=== PATIENT | female | born 1955 | race Caucasian/White ===

== ENCOUNTER 2016-08-29 08:52 | Outpatient (CLI) | payer OTHER ==
--- NOTE | 2016-08-29 10:27 | DIAGNOSTIC IMAGING REPORT ---
PROCEDURE: US KIDNEY/RENAL COMPLETE INDICATION: KIDNEY CYSTS TECHNIQUE: Transabdominal scans of the kidneys with calculation of resistive indices. Prevoid and postvoid bladder volumes were obtained. COMPARISON: None. FINDINGS: RIGHT: Measures 8.6 x 4.9 x 4.7 cm. Cortex measures 1.1 cm. No calculi or hydronephrosis. Resistive indices measure 0.78 or less. LEFT: Kidney measures 9.2 x 4.6 x 4.4 cm. Cortex measures 1.1 cm. There is a 9 mm simple mid pole cyst. No calculi or hydronephrosis. Resistive indices measure 0.76 or less. BLADDER: Bilateral ureteral jets visualized. Prevoid bladder volume 323 ml, postvoid volume 13 ml. IMPRESSION: 1. 9 mm simple mid left renal cyst 2. Borderline elevation of the resistive indices which may indicate intrinsic renal disease
--- NOTE | 2016-09-05 10:17 | DIAGNOSTIC IMAGING REPORT ---
PROCEDURE: MG BILATERAL SCREENING W/CAD INDICATION: SCREENING TECHNIQUE: Bilateral CC and MLO digital views. COMPARISON: Prior studies not available at this time and have been requested. FINDINGS: Computer-aided detection applied. Moderately dense. No change. IMPRESSION: 1. Negative mammogram RESULT CODE: 0- Prior images needed. A. A negative report should not delay biopsy if a dominant or clinically suspicious mass is present. 10-15% of cancers are not identified by x-ray. B. A negative report may reinforce clinical impression. C. Adenosis and dense breasts may obscure an underlying neoplasm. D. False positive reports average 6-10%. E.. A yearly screening mammogram is recommended. A reminder letter will be scheduled.
== END 2016-08-29 23:00 ==
LOC: US SRH 08:52
DX: Z12.31 Encounter for screening mammogram for malignant neoplasm of breast (principal); N28.1 Cyst of kidney, acquired

== ENCOUNTER 2016-10-01 10:03 | Outpatient (CLI) | payer OTHER ==
--- NOTE | 2016-10-01 10:29 | DIAGNOSTIC IMAGING REPORT ---
PROCEDURE: XR CHEST 2 VIEW INDICATION: PULMONARY NODULES/LESIONS, MULTIPLE TECHNIQUE: PA and lateral views. COMPARISON: None available FINDINGS: Lungs are clear of infiltrates. Scattered 1-2 mm nodules are seen throughout both lung enamorado. Heart and mediastinum are normal. Thorax is normal. IMPRESSION: 1. No acute infiltrates. Scattered 1-2 mm nodules.
== END 2016-10-01 23:00 ==
LOC: XR SRH 10:03
DX: R91.8 Other nonspecific abnormal finding of lung field (principal)

== ENCOUNTER 2016-10-08 11:54 | Emergency (ER) | payer OTHER ==
--- NOTE | 2016-10-08 14:55 | ED CLINICAL REPORT ---
Clinical Report - Physicians/Mid Levels [facility] [address] [place] [address] 10/08/2016 11:55 Patient: BENJAMIN CHRISTINE Time Seen: 12:23; initial patient contact. Arrived- By private vehicle. Historian- patient. HISTORY OF PRESENT ILLNESS Chief Complaint: HEADACHE. This started about 1 week ago. Onset during light activity. It is described as similar to previous headaches and tightness. Located in the right hemicranial and occipital region and has had neck pain. Not located in the facial region. At its maximum, severity described as moderate. When seen in the E.D., severity described as moderate. Modifying factors: worsened by tension; relieved by nothing. The patient has had nausea. No preceding symptoms, blurred vision, photophobia, numbness or weakness. No vomiting. (Pt has been under more stress than usual recently). Similar symptoms previously: Many times. Recent medical care: The patient was seen recently in the office. REVIEW OF SYSTEMS No fever, muscle aches, sinus pressure, head injury or skin rash. All systems otherwise negative, except as recorded above. PAST HISTORY Panic anxiety disorder. Bipolar Disorder. Dementia. Depression. Anxiety Reaction. Degenerative Joint Disease. Back Pain. COPD - Chronic Obstructive Pulmonary Disease. CVA - Cerebrovascular Accident. SURGERIES: Carotid endarterectomy. Tonsillectomy. Medications: SUMAtriptan Succinate Oral. Spiriva HandiHaler Inhalation. Famciclovir Oral. Cyclobenzaprine HCl Oral. Sertraline HCl Oral. Simvastatin Oral. Allergies: STEROIDS. Sulfa Antibiotics. SOCIAL HISTORY Former smoker. No alcohol use or drug use. ADDITIONAL NOTES The nursing notes have been reviewed. PHYSICAL EXAM Vital Signs: 10/08/2016 12:06 BP: 183/79. HR: 80. RR: 16. O2 saturation: 100%. Temp: 97.6 F. Pain level now: 7/10. Have been reviewed. Hypertensive. Heart rate normal. Respiratory rate normal. Temperature normal. Oxygen saturation normal. Appearance: Alert. No acute distress. Eyes: Pupils equal, round and reactive to light. Eyes normal inspection. No photophobia. ENT: Pharynx normal. Neck: Normal inspection. Mild acute decrease in ROM secondary to pain. Mild pain in the entire posterior neck upon turning the head to the left and flexing the neck. Moderate muscle spasm of the right posterior neck. Neck supple. Mild soft tissue tenderness in the right upper, mid and lower neck area. No meningeal signs. No vertebral tenderness. No vertebral step-off. CVS: Normal heart rate and rhythm. Heart sounds normal. Respiratory: No respiratory distress. Breath sounds normal. Skin: Normal skin color. No rash. Extremities: No lower extremity edema. Neuro: Oriented X 3. Alert. Mood/affect normal. Speech normal. Cranial nerves normal (as tested). No cerebellar findings. No abnormal finger-nose test. No motor deficit. No sensory deficit. Reflex exam: right triceps 2+, left triceps 2+, right brachioradialis 2+, left brachioradialis 2+, right patellar 2+, left patellar 2+, right Achilles and left Achilles. Normal gait. LABS, X-RAYS, AND EKG Laboratory Tests: UA-Culture if indicated: (PIETER: 10/08/2016 12:45) ( [facility] [place]/08[place] 14:03) Final results Test Result Flag Units (Reference) URINE COLOR YELLOW URINE APPEARANCE CLEAR URINE GLUCOSE NEGATIVE (NEGATIVE) URINE BILIRUBIN NEGATIVE (NEGATIVE) URINE KETONE NEGATIVE (NEGATIVE) URINE SPECIFIC GRAVITY 1.020 (1.010-1.030) URINE PH 6.0 (5.0-8.0) URINE PROTEIN NEGATIVE (NEGATIVE) URINE UROBILINOGEN 0.2 EU/dL (0.2-1.0) URINE NITRITE NEGATIVE (NEGATIVE) URINE BLOOD NEGATIVE (NEGATIVE) URINE LEUK ESTERASE NEGATIVE (NEGATIVE) URINE RBC NONE SEEN rbc/hpf (0-1) URINE WBC 1-3 wbc/hpf (0-1) URINE EPITHELIAL CELLS 1-3 EPI/hpf (0-5) URINE BACTERIA FEW (1+) (NONE SEEN) URINE COMMENT CULT NOT INDICATED 1+ MUCOUS. RARE HYALINE CASTURINE CULTURES ARE SET-UP BASED ON THE FOLLOWING CRITERIA:POSITIVE NITRITEPOSITIVE LEUKOCYTE ESTERASEGREATER THAN 10 WHITE BLOOD CELLSMODERATE (2+) OR GREATER BACTERIA CBC w Diff: (PIETER: 10/08/2016 12:22) ( [facility] 10/08/2016 13:08) Final results Test Result Flag Units (Reference) WHITE BLOOD COUNT 8.7 K/uL (4.5-11.5) RED BLOOD COUNT 4.55 M/uL (4.00-5.20) HEMOGLOBIN 13.5 gm/dL (12.0-16.0) HEMATOCRIT 40.4 % (36.0-46.0) MEAN CELL VOLUME 89 fL (80-100) MEAN CORPUSCULAR HGB 30 pg (26-34) MEAN CORPUSCULAR HGB CONC 33 g/dL (31-37) RED CELL DISTRIBUTION WIDTH 13.0 % (11.6-14.8) PLATELET COUNT 278 K/uL (150-400) NEUTROPHIL % 61.4 % (50-75) LYMPH % 31.7 % (25-40) MONO % 4.3 % (3-14) EOSINOPHIL % 1.8 % (0-4) BASOPHIL % 0.8 % (0-2) PT with INR: (PIETER: 10/08/2016 12:22) ( [facility] 10/08/2016 13:07) Final results Test Result Flag Units (Reference) INR 1.0 (0.8-1.2) Low Intensity Therapy: INR 1.5-2.0 PT range 18.5-23.1Mod.Intensity Therapy: INR 2.0-3.0 PT range 23.1-31.5High Intensity Therapy: INR 2.5-3.5 PT range 27.4-35.5High Intensity Therapy 2: INR 3.0-4.0 PT range 31.5-39.3 APTT 30 SECONDS (24-34) Urine Drug Screen: (PIETER: 10/08/2016 12:45) ( [facility] 10/08/2016 13:56) Final results Test Result Flag Units (Reference) AMPHETAMINE/METHAMPHETAMINE NEGATIVE (NEGATIVE) BARBITURATE NEGATIVE (NEGATIVE) BENZODIAZEPINE POSITIVE H (NEGATIVE) CANNABINOID NEGATIVE (NEGATIVE) COCAINE NEGATIVE (NEGATIVE) ECSTASY NEGATIVE (NEGATIVE) METHADONE NEGATIVE (NEGATIVE) OPIATE NEGATIVE (NEGATIVE) The urine drug screen is a qualitative screening test fordrug overdose and abuse. All screen results should beconsidered as presumptive.Drugs screened for are as follows:BenzodiazepinesCocaineAmphetamines/MetamphetaminesTHC (Tetrahydrocannabinol)OpiatesBarbituratesEcstasyMethadonePositive results are unconfirmed. For confirmation, notifythe lab for the specimen to be sent to the reference lab.All confirmations must be performed by a differentmethodology.The ingestion of natural herbal and plant productscontaining Ephedra/Ephedra metabolites can produce in urineone or more substances capable of cross reacting withamphetamine/methamphetamine immunoassays. These testsprovide a preliminary result only. A more specificalternative chemical method must be used to obtain aconfirmed analytical result. CMP: (PIETER: 10/08/2016 12:22) ( [facility] 10/08/2016 13:02) Final results Test Result Flag Units (Reference) GLUCOSE 96 mg/dL (70-110) BUN 13 mg/dL (7-18) CREATININE 0.8 mg/dL (0.6-1.3) Estimated GFR >60 mL/min Estimated GFR- >60 mL/min Note: Persistent reduction over 3 months in eGFR<60 mL/min/1.73 m2 defines CKD. Patients with eGFR values>=60 mL/min/1.73 m2 may also have CKD if evidence ofpersistent proteinuria. Additional information may be foundat www.kidney.org. SODIUM 144 mmol/L (136-145) POTASSIUM 3.9 mmol/L (3.5-5.1) CHLORIDE 105 mmol/L (98-107) CARBON DIOXIDE 30 mmol/L (21-32) CALCIUM 9.1 mg/dL (8.5-10.1) TOTAL PROTEIN 8.2 g/dL (6.4-8.2) ALBUMIN 4.1 g/dL (3.3-5.0) BILIRUBIN, TOTAL 0.3 mg/dL (0.0-1.0) ALKALINE PHOSPHATASE 122 H U/L (46-116) AST (SGOT) 21 U/L (15-37) ALT (SGPT) 20 U/L (12-78) . PROGRESS AND PROCEDURES Course of Care: Diazepam 5 mg IVP given. Physical exam findings are improved. Symptoms much better. Disposition: Discharged home in good and improved condition. Condition: good. CLINICAL IMPRESSION Episodic tension-type headache resistant to treatment. INSTRUCTIONS Your Current Medications: CONTINUE TAKING THE FOLLOWING MEDICATIONS: Cyclobenzaprine HCl Oral. Famciclovir Oral. Sertraline HCl Oral. Simvastatin Oral. Spiriva HandiHaler Inhalation. SUMAtriptan Succinate Oral. Prescription Medications: Diazepam 5 mg tablets: take 1 tablet orally every 8 hours as needed for muscle spasm. Dispense fifteen (15). No refill. Follow-up: Follow up with your doctor in about two days. Call for an appointment. Screening today revealed the patient's blood pressure to be in the hypertensive range. The patient should follow up with a primary care provider for blood pressure management. (Electronically signed by Barry Chase Dr. 10/09/2016 20:44)
--- NOTE | 2016-10-08 14:55 | ED ORDER SUMMARY ---
..... Patient: BENJAMIN CHRISTINE OrderSheet [facility] VisitID: [id number] [place] [address] 61y, F Registration Date/Time: 10/08/2016 ORDER SHEET Weight: 72.1 kg (stated) Allergies: Sulfa Antibiotics, STEROIDS GENERAL ORDERS: CBC w Diff Urgent (12:10/08/2016 Paul Encarnacion) (Ack 12:36 Abraham) (12:38 EHassan R.N.) CMP Urgent (12:10/08/2016 Paul Encarnacion) (Ack 12:36 Abraham) (12:38 EHassan R.N.) UA-Culture if indicated Urgent (12:10/08/2016 Paul Encarnacion) (Ack 12:36 Abraham) (13:42 EHassan R.N.) Urine Drug Screen Urgent (12:10/08/2016 Paul Encarnacion) (Ack 12:36 Abraham) (13:42 EHassan R.N.) PT with INR Urgent (12:10/08/2016 Paul Encarnacion) (Ack 12:36 Abraham) (12:38 EHassan R.N.) PTT Urgent (12:10/08/2016 Paul Encarnacion) (Ack 12:36 Abraham) (12:38 EHassan R.N.) MEDICATION ORDERS: IV FLUIDS: Diazepam IV 5 mg (HIGH ALERT MEDICATION, NOW) (12:30 10/08/2016 Paul Encarnacion) (12:41 EHassan R.N.) IV Saline Lock (12:10/08/2016 Paul Encarnacion) (12:34 KPage-Kuchan R.N.) ORDER SHEET NOTES: [Electronically signed by Teri Dowell R.N. (15:13 10/08/2016)] [Electronically signed by Barry Chase Dr. (20:44 10/09/2016)] [Electronically locked/signed by Teri Dowell R.N. (15:13 10/08/2016)]
--- NOTE | 2016-10-08 14:55 | ED ORDER SUMMARY ---
..... Patient: BENJAMIN CHRISTINE OrderSheet [facility] VisitID: [id number] [place] [address] 61y, F Registration Date/Time: 10/08/2016 ORDER SHEET Weight: 72.1 kg (stated) Allergies: Sulfa Antibiotics, STEROIDS GENERAL ORDERS: CBC w Diff Urgent (12:10/08/2016 Paul Encarnacion) (Ack 12:36 Abraham) (12:38 EHassan R.N.) CMP Urgent (12:10/08/2016 Paul Encarnacion) (Ack 12:36 Abraham) (12:38 EHassan R.N.) UA-Culture if indicated Urgent (12:10/08/2016 Paul Encarnacion) (Ack 12:36 Abraham) (13:42 EHassan R.N.) Urine Drug Screen Urgent (12:10/08/2016 Paul Encarnacion) (Ack 12:36 Abraham) (13:42 EHassan R.N.) PT with INR Urgent (12:10/08/2016 Paul Encarnacion) (Ack 12:36 Abraham) (12:38 EHassan R.N.) PTT Urgent (12:10/08/2016 Paul Encarnacion) (Ack 12:36 Abraham) (12:38 EHassan R.N.) MEDICATION ORDERS: IV FLUIDS: Diazepam IV 5 mg (HIGH ALERT MEDICATION, NOW) (12:30 10/08/2016 Paul Encarnacion) (12:41 EHassan R.N.) IV Saline Lock (12:10/08/2016 Paul Encarnacion) (12:34 KPage-Kuchan R.N.) ORDER SHEET NOTES: [Electronically signed by Teri Dowell R.N. (15:13 10/08/2016)] [Electronically signed by Barry Chase Dr. (20:44 10/09/2016)] [Electronically locked/signed by Teri Dowell R.N. (15:13 10/08/2016)]
--- NOTE | 2016-10-08 14:55 | ED NURSING NOTES ---
Clinical Report - Nurses [facility] [address] [place] [address] 10/08/2016 11:55 Patient: BENJAMIN CHRISTINE TRIAGE 11:57. --11:59 Trinity Alonso R.N. Triage time 1200 PM. Acuity: LEVEL 3. Alert. No acute distress. SEPSIS SCREEN: Sepsis Screen. Negative (no infection suspected/documented). RAE COMA SCORE: [place] Coma Scale: 15- eyes open spontaneously (4); best verbal response- oriented x 4 (5); best motor response- obeys commands (6). --12:21 Teri Dowell R.N. 12:06 10/08/16. BP: 183/79 (regular adult cuff) taken on the left arm, via an automated monitor, while lying. HR: 80. RR: 16. O2 saturation: 100%. Temp: 97.6 F. Pain level now: 01/20. --12:21 Teri Dowell R.N. Chief Complaint: (H/A). late entry - 12:00 PM. --15:13 Teri Dowell R.N. Weight: 72.1 kg stated. Height/Length: 62 inches Per Patient. BMI: 29.1. --12:08 Teri Dowell R.N. Medications Simvastatin Oral. --12:25 Teri Dowell R.N. Sertraline HCl Oral. --12:25 Teri Dowell R.N. Cyclobenzaprine HCl Oral. --12:26 Teri Dowell R.N. Famciclovir Oral. --12:26 Teri Dowell R.N. Spiriva HandiHaler Inhalation. --12:26 Teri Dowell R.N. SUMAtriptan Succinate Oral. --12:26 Teri Dowell R.N. Allergies Sulfa Antibiotics. --12:10 Teri Dowell R.N. STEROIDS. --12:10 Teri Dowell R.N. Medication/allergy information source: the patient. --12:21 Teri Dowell R.N. History ( assessed by this RN in [facility]. Negative FAST exam). --11:59 Trinity Alonso R.N. Historian: patient. Arrived by public transportation and unaccompanied. Primary physician (). Patient did not arrive by private vehicle. ( Pt states has had a hx of strokes in the past, just went to the Dr. Beasley who advised her to come to the ED for further evaluation, pt has been complaining of H/A, anxiety, feeling a bit more confused than usual (pt has a hx of dementia).). This started 1 week. Onset. (1 week). She has had a headache and weakness. No recent fall, impaired speech or trouble walking or swallowing. 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 PAST MEDICAL HX: Immunizations: up-to-date. The patient has had a hysterectomy. SOCIAL HX: Former smoker. No alcohol use or drug use. No infectious disease exposure. ABUSE ASSESSMENT: No report of abuse. SELF HARM ASSESSMENT: A self harm assessment was performed. The patient answered "no" to the question "Do you have thoughts of harming or killing yourself?" and "Have you recently had thoughts about harming or killing others?". FALL RISK ASSESSMENT: Fall risk assessment completed. No fall risk identified. NUTRITIONAL RISK ASSESSMENT: The nutritional risk assessment revealed no deficiencies. FUNCTIONAL ASSESSMENT: Functional assessment: no impairments noted. LEARNING NEEDS ASSESSMENT: The learning needs assessment revealed no barriers. SKIN INTEGRITY ASSESSMENT: Skin integrity risk assessment completed. No skin integrity risk identified. --12:21 Teri Dowell R.N. PROBLEMS: Panic anxiety disorder. Bipolar Disorder. Dementia. Depression. Anxiety Reaction. Degenerative Joint Disease. Back Pain. COPD - Chronic Obstructive Pulmonary Disease. CVA - Cerebrovascular Accident. --12:14 Teri Dowell R.N. ADDITIONAL SURGERIES: Carotid endarterectomy. --12:14 Teri Dowell R.N. Hysterectomy. Tonsillectomy. --12:17 Teri Dowell R.N. Interventions ID band on patient. --12:21 Teri Dowell R.N. PHYSICAL ASSESSMENT Ambulatory to room. Baseline functional status: usually alert and oriented x4. Verbal response: usually clear. Motor response: usually steady gait and moves all extremities equally GENERAL / NEURO / PSYCH: Awake. Oriented X 4. Alert. Appears in no acute distress. Speech normal. Expressive aphasia (past hx). Mood/affect normal. Does not move all extremities. No motor deficit. Pupillary exam: Right pupil 4mm, round and briskly reactive to light directly. Left pupil: 4mm, round and briskly reactive to light directly. HEENT: No facial asymmetry noted. Pupils equal, round and reactive to light. RESPIRATORY: Breath sounds within normal limits. Respirations not labored. CVS: Normal sinus rhythm noted. Capillary refill less than 2 seconds. SKIN: Skin is intact, warm and dry. --12:27 Teri Dowell R.N. NURSING PROGRESS NOTES The initial plan of care for this patient has been created This plan of care was discussed with the patient. Patient gowned. Warming measures: blanket applied. Reassurance given. GENERAL / NEURO / PSYCH: The patient reports headache. Appears anxious. Two patient identifiers checked. Call light placed in reach. Side rails up x 1. Bed placed in lowest position. Brakes of bed on. Patient ready for evaluation- ED physician notified. --12:24 Teri Dowell R.N. child development director, pulse oximeter and NIBP monitor placed on patient. --12:24 Teri Dowell R.N. 12:24 10/08/16. BP: 192/80 (regular adult cuff) taken on the left arm, via an automated monitor, while lying. HR: 80. RR: 18. O2 saturation: 100%. Pain level now: 01/20. --12:25 Teri Dowell R.N. 12:24 10/08/2016 Site #1 started via IV in the left hand with an 20g angiocath; one attempt. Blood drawn: rainbow set. Labeled in the presence of the patient and sent to the lab. Saline lock flushed with 10 mL saline. --12:34 Bobby Goodrich R.N. Finger stick glucose: 86; performed by nurse; result shown to the ED physician. --12:36 Teri Dowell R.N. 12:41 10/08/2016 Diazepam (Diazepam) IVP 5 mg given over 1 minute(s) via site #1. Allergies verified, confirmed 5 rights and sedative warning given to the patient. IV patency established. IV site checked: no pain, redness, or swelling. IV flushed thoroughly pre- and post-medication administration. IVP given by RN. --12:41 Teri Dowell R.N. Cardiac rhythm: normal sinus rhythm. Reassurance given. The patient is resting quietly. Overall patient status is the same- she states feels the same. GENERAL / NEURO / PSYCH: The patient reports headache. Alert. Affect appears normal. Appears anxious. No weakness or numbness. HEENT: Pupils equal, round and reactive to light. RESPIRATORY: No respiratory distress. SKIN: Skin is warm and dry. Patient identifiers checked. Call light placed in reach. --12:45 Teri Dowell R.N. 12:44 10/08/16. BP: 179/54. HR: 78. RR: 15. O2 saturation: 100% on room air. Pain level now: 01/20. --12:45 Teri Dowell R.N. 13:07 10/08/2016 Diazepam IVP Response: no adverse reaction. --13:07 Teri Dowell R.N. 13:51 10/08/16. BP: 169/68. HR: 87. RR: 14 (regular). O2 saturation: 100%. Pain level now: 5/10. --13:52 Teri Dowell R.N. Cardiac rhythm: normal sinus rhythm. Reassurance given. Overall patient status is improved- she states feels better. Call light placed in reach. --13:52 Teri Dowell R.N. 14:48 10/08/2016 Site #1 removed upon discharge. Catheter intact. Manual pressure applied. --14:48 Teri Dowell R.N. Reassurance given. The patient is calm. Overall patient status is improved- she states feels better. GENERAL / NEURO / PSYCH: The patient reports headache. Denies weakness and numbness. Alert. Oriented X 4. GI / : Denies nausea. Call light placed in reach. --14:48 Teri Dowell R.N. 14:47 10/08/16. BP: 172/58. HR: 85. RR: 14. O2 saturation: 100% on room air. Temp: 98.6 F (oral). Pain level now: 11/20. --14:48 Teri Dowell R.N. DISPOSITION / DISCHARGE Departure time: 1502. Condition at departure: improved and stable. The goals identified in the patient's plan of care were met. No learning barriers present. Reviewed medication(s) side effects, precautions, dosing and course information. Prescription(s) given to the patient. Activity restrictions (rest) reviewed. Patient verbalized understanding. Written instructions provided in [place]. No warning instructions. The patient was discharged by the physician. She was discharged home and accompanied by spouse. She left the Emergency Department ambulatory and via taxi. FALL RISK ASSESSMENT: Fall risk assessment completed. No fall risk identified. --15:12 Teri Dowell R.N. 15:00 10/08/16. BP: 167/58 (regular adult cuff) taken on the left arm, via an automated monitor, while standing. HR: 78. RR: 15. O2 saturation: 100% on room air. Temp: 98.6 F (oral). Pain level now: 11/20. --15:12 Teri Dowell R.N. Locked/Released at 10/08/2016 15:13 by Teri Dowell R.N.
--- NOTE | 2016-10-09 20:44 | ED MAR SUMMARY ---
..... Medication Administration Record [facility] [address] [place] [address] Patient: BENJAMIN CHRISTINE Visit ID: [id number] 61y, F Weight: 72.1 kg Height/Length: 62 in BMI: 29.1 ALLERGIES: STEROIDS, Sulfa Antibiotics Given 12:41 10/08/2016 Teri Dowell RLeander Medication Administered: DIAZEPAM [IVP] (DIAZEPAM), Dose: 5 mg IVP over 1 minute(s), Site: #1 left hand. Medication Ordered: Diazepam IV 5 mg (HIGH ALERT MEDICATION, NOW).
--- NOTE | 2016-10-09 20:44 | ED MED RECONCILIATION SUMMARY ---
Patient: BENJAMIN CHRISTINE Medication Reconciliation Report [facility] VisitID: [id number] [address] [place] [address] 61y, F Registration Date/Time: 10/08/2016 Weight: 72.1 kg Height/Length: 62 in. BMI: 29.1 ALLERGIES: STEROIDS, Sulfa Antibiotics The patient's Home Medications are listed below: CONTINUE TAKING THE FOLLOWING MEDICATIONS: Cyclobenzaprine HCl Oral Famciclovir Oral Sertraline HCl Oral Simvastatin Oral Spiriva HandiHaler Inhalation SUMAtriptan Succinate Oral The source(s) of the original Home Medication information: patient The following Medications were given to the patient in the Emergency Department: Diazepam [IVP] IVP 5 mg, administered: 10/08/2016 12:41:00 PM The following Medications were prescribed to the patient: Diazepam 5 mg tablets: take 1 tablet orally every 8 hours as needed for muscle spasm. Dispense fifteen (15). No refill. -- Barry Chase Dr.
--- NOTE | 2016-10-09 20:44 | ED DISCHARGE INSTRUCTIONS ---
Patient: BENJAMIN CHRISTINE General Instructions [facility] VisitID: [id number] [place] [address] 61y, F Registration Date/Time: 10/08/2016 Episodic tension-type headache resistant to treatment. INSTRUCTIONS Your Current Medications: CONTINUE TAKING THE FOLLOWING MEDICATIONS: Cyclobenzaprine HCl Oral. Famciclovir Oral. Sertraline HCl Oral. Simvastatin Oral. Spiriva HandiHaler Inhalation. SUMAtriptan Succinate Oral. Prescription Medications: Diazepam 5 mg tablets: take 1 tablet orally every 8 hours as needed for muscle spasm. Dispense fifteen (15). No refill. Follow-up: Follow up with your doctor in about two days. Call for an appointment. Screening today revealed the patient's blood pressure to be in the hypertensive range. The patient should follow up with a primary care provider for blood pressure management. ADDITIONAL INFORMATION Tension Headache Muscle Tension Headache (also called "stress headache") is a very common cause of head pain. Under stress, some people tense the muscles of their shoulder, neck and scalp without knowing it. If this lasts long enough, a headache can occur. These headaches can be very painful and last for hours or even days. Home Care: If you were given pain medicine for this headache, do not drive yourself home. Arrange for a ride, instead. When you get home, try to sleep. You should feel much better when you wake up. Heat to the back of your neck may relieve neck spasm. Drink only clear liquids or eat a very light diet to avoid nausea/vomiting until symptoms improve. Preventing Future Headaches Identify the sources of stress in your life. These may not be obvious! Learn new ways to handle your stress, such as regular exercise, biofeedback, self-hypnosis and meditation. For more information about this, consult your doctor or go to a local bookstore and review the many books and tapes on this subject. At the first sign of a tension headache, take time out if possible. Remove yourself from the stressful situation, find a quiet comfortable place to sit or lie down and let yourself relax. Heat and deep massage of the tight areas in the neck and shoulders may help reduce muscle spasm. Medicine, such as ibuprofen (Advil or Motrin) or a prescribed muscle relaxant may be helpful at this point. Follow Up with your doctor if the headache is not better within the next 24 hours. If you have frequent headaches you should discuss a treatment plan with your primary care doctor. Ask if you can have medicine to take at home the next time you get a bad headache. This may avoid the need for a visit to the emergency department in the future. Poorly controlled chronic headaches may require a referral to a neurologist (headache specialist). Get Prompt Medical Attention if any of the following occur: Worsening of your head pain or no improvement within 24 hours Repeated vomiting (unable to keep liquids down) Fever of 100.4F (38C) or higher, or as directed by your healthcare provider Stiff neck Extreme drowsiness, confusion or fainting Dizziness, vertigo (dizziness with spinning sensation) Weakness of an arm or leg or one side of the face Difficulty with speech or vision Diazepam Oral tablet What is this medicine? DIAZEPAM (dye AZ e senait) is a benzodiazepine. It is used to treat anxiety and nervousness. It also can help treat alcohol withdrawal, relax muscles, and treat certain types of seizures. How should I use this medicine? Take this medicine by mouth with a glass of water. Follow the directions on the prescription label. If this medicine upsets your stomach, take it with food or milk. Take your doses at regular intervals. Do not take your medicine more often than directed. If you have been taking this medicine regularly for some time, do not suddenly stop taking it. You must gradually reduce the dose or you may get severe side effects. Ask your doctor or health resident care director for advice. Even after you stop taking this medicine it can still affect your body for several days. Talk to your bass singer regarding the use of this medicine in children. Special care may be needed. What side effects may I notice from receiving this medicine? Side effects that you should report to your doctor or health resident care director as soon as possible: allergic reactions like skin rash, itching or hives, swelling of the face, lips, or tongue angry, confused, depressed, other mood changes breathing problems feeling faint or lightheaded, falls muscle cramps problems with balance, talking, walking restlessness tremors trouble passing urine or change in the amount of urine unusually weak or tired Side effects that usually do not require medical attention (report to your doctor or health resident care director if they continue or are bothersome): difficulty sleeping, nightmares dizziness, drowsiness, clumsiness, or unsteadiness, a hangover effect headache nausea, vomiting What may interact with this medicine? cimetidine grapefruit juice herbal or dietary supplements like kava kava, melatonin, Francie's Wort, or valerian medicines for anxiety or sleeping problems, like alprazolam, lorazepam, or triazolam medicines for depression, mental problems or psychiatric disturbances medicines for HIV infection or AIDS prescription pain medicines rifampin, rifapentine, or rifabutin some medicines for seizures like carbamazepine, phenobarbital, phenytoin, or primidone What if I miss a dose? If you miss a dose, take it as soon as you can. If it is almost time for your next dose, take only that dose. Do not take double or extra doses. Where should I keep my medicine? Keep out of the reach of children. This medicine can be abused. Keep your medicine in a safe place to protect it from theft. Do not share this medicine with anyone. Selling or giving away this medicine is dangerous and against the law. Store at room temperature between 15 and 30 degrees C (59 and 86 degrees F). Protect from light. Keep container tightly closed. Throw away any unused medicine after the expiration date. What should I tell my health care provider before I take this medicine? They need to know if you have any of these conditions an alcohol or drug abuse problem bipolar disorder, depression, psychosis or other mental health condition glaucoma kidney or liver disease lung or breathing disease myasthenia gravis Parkinson's disease seizures or a history of seizures suicidal thoughts an unusual or allergic reaction to diazepam, other benzodiazepines, foods, dyes, or preservatives or trying to get breast-feeding What should I watch for while using this medicine? Visit your doctor or health resident care director for regular checks on your progress. Your body can become dependent on this medicine. Ask your doctor or health resident care director if you still need to take it. You may get drowsy or dizzy. Do not drive, use machinery, or do anything that needs mental alertness until you know how this medicine affects you. To reduce the risk of dizzy and fainting spells, do not stand or sit up quickly, especially if you are an older patient. Alcohol may increase dizziness and drowsiness. Avoid alcoholic drinks. Do not treat yourself for coughs, colds or allergies without asking your doctor or health resident care director for advice. Some ingredients can increase possible side effects. You have been given the following additional information: Headache, Tension Diazepam Oral tablet (Electronically signed by Barry Chase Dr. 10/09/2016 20:44)
--- NOTE | 2016-10-09 20:44 | ED MAR SUMMARY ---
..... Medication Administration Record [facility] [address] [place] [address] Patient: BENJAMIN CHRISTINE Visit ID: [id number] 61y, F Weight: 72.1 kg Height/Length: 62 in BMI: 29.1 ALLERGIES: STEROIDS, Sulfa Antibiotics Given 12:41 10/08/2016 Teri Dowell RLeander Medication Administered: DIAZEPAM [IVP] (DIAZEPAM), Dose: 5 mg IVP over 1 minute(s), Site: #1 left hand. Medication Ordered: Diazepam IV 5 mg (HIGH ALERT MEDICATION, NOW).
--- NOTE | 2016-10-09 20:44 | ED DISCHARGE INSTRUCTIONS ---
Patient: BENJAMIN CHRISTINE General Instructions [facility] VisitID: [id number] [place] [address] 61y, F Registration Date/Time: 10/08/2016 Episodic tension-type headache resistant to treatment. INSTRUCTIONS Your Current Medications: CONTINUE TAKING THE FOLLOWING MEDICATIONS: Cyclobenzaprine HCl Oral. Famciclovir Oral. Sertraline HCl Oral. Simvastatin Oral. Spiriva HandiHaler Inhalation. SUMAtriptan Succinate Oral. Prescription Medications: Diazepam 5 mg tablets: take 1 tablet orally every 8 hours as needed for muscle spasm. Dispense fifteen (15). No refill. Follow-up: Follow up with your doctor in about two days. Call for an appointment. Screening today revealed the patient's blood pressure to be in the hypertensive range. The patient should follow up with a primary care provider for blood pressure management. ADDITIONAL INFORMATION Tension Headache Muscle Tension Headache (also called "stress headache") is a very common cause of head pain. Under stress, some people tense the muscles of their shoulder, neck and scalp without knowing it. If this lasts long enough, a headache can occur. These headaches can be very painful and last for hours or even days. Home Care: If you were given pain medicine for this headache, do not drive yourself home. Arrange for a ride, instead. When you get home, try to sleep. You should feel much better when you wake up. Heat to the back of your neck may relieve neck spasm. Drink only clear liquids or eat a very light diet to avoid nausea/vomiting until symptoms improve. Preventing Future Headaches Identify the sources of stress in your life. These may not be obvious! Learn new ways to handle your stress, such as regular exercise, biofeedback, self-hypnosis and meditation. For more information about this, consult your doctor or go to a local bookstore and review the many books and tapes on this subject. At the first sign of a tension headache, take time out if possible. Remove yourself from the stressful situation, find a quiet comfortable place to sit or lie down and let yourself relax. Heat and deep massage of the tight areas in the neck and shoulders may help reduce muscle spasm. Medicine, such as ibuprofen (Advil or Motrin) or a prescribed muscle relaxant may be helpful at this point. Follow Up with your doctor if the headache is not better within the next 24 hours. If you have frequent headaches you should discuss a treatment plan with your primary care doctor. Ask if you can have medicine to take at home the next time you get a bad headache. This may avoid the need for a visit to the emergency department in the future. Poorly controlled chronic headaches may require a referral to a neurologist (headache specialist). Get Prompt Medical Attention if any of the following occur: Worsening of your head pain or no improvement within 24 hours Repeated vomiting (unable to keep liquids down) Fever of 100.4F (38C) or higher, or as directed by your healthcare provider Stiff neck Extreme drowsiness, confusion or fainting Dizziness, vertigo (dizziness with spinning sensation) Weakness of an arm or leg or one side of the face Difficulty with speech or vision Diazepam Oral tablet What is this medicine? DIAZEPAM (dye AZ e senait) is a benzodiazepine. It is used to treat anxiety and nervousness. It also can help treat alcohol withdrawal, relax muscles, and treat certain types of seizures. How should I use this medicine? Take this medicine by mouth with a glass of water. Follow the directions on the prescription label. If this medicine upsets your stomach, take it with food or milk. Take your doses at regular intervals. Do not take your medicine more often than directed. If you have been taking this medicine regularly for some time, do not suddenly stop taking it. You must gradually reduce the dose or you may get severe side effects. Ask your doctor or health care analyst for advice. Even after you stop taking this medicine it can still affect your body for several days. Talk to your biometrics analyst regarding the use of this medicine in children. Special care may be needed. What side effects may I notice from receiving this medicine? Side effects that you should report to your doctor or health care analyst as soon as possible: allergic reactions like skin rash, itching or hives, swelling of the face, lips, or tongue angry, confused, depressed, other mood changes breathing problems feeling faint or lightheaded, falls muscle cramps problems with balance, talking, walking restlessness tremors trouble passing urine or change in the amount of urine unusually weak or tired Side effects that usually do not require medical attention (report to your doctor or health care analyst if they continue or are bothersome): difficulty sleeping, nightmares dizziness, drowsiness, clumsiness, or unsteadiness, a hangover effect headache nausea, vomiting What may interact with this medicine? cimetidine grapefruit juice herbal or dietary supplements like kava kava, melatonin, Francie's Wort, or valerian medicines for anxiety or sleeping problems, like alprazolam, lorazepam, or triazolam medicines for depression, mental problems or psychiatric disturbances medicines for HIV infection or AIDS prescription pain medicines rifampin, rifapentine, or rifabutin some medicines for seizures like carbamazepine, phenobarbital, phenytoin, or primidone What if I miss a dose? If you miss a dose, take it as soon as you can. If it is almost time for your next dose, take only that dose. Do not take double or extra doses. Where should I keep my medicine? Keep out of the reach of children. This medicine can be abused. Keep your medicine in a safe place to protect it from theft. Do not share this medicine with anyone. Selling or giving away this medicine is dangerous and against the law. Store at room temperature between 15 and 30 degrees C (59 and 86 degrees F). Protect from light. Keep container tightly closed. Throw away any unused medicine after the expiration date. What should I tell my health care provider before I take this medicine? They need to know if you have any of these conditions an alcohol or drug abuse problem bipolar disorder, depression, psychosis or other mental health condition glaucoma kidney or liver disease lung or breathing disease myasthenia gravis Parkinson's disease seizures or a history of seizures suicidal thoughts an unusual or allergic reaction to diazepam, other benzodiazepines, foods, dyes, or preservatives or trying to get breast-feeding What should I watch for while using this medicine? Visit your doctor or health care analyst for regular checks on your progress. Your body can become dependent on this medicine. Ask your doctor or health care analyst if you still need to take it. You may get drowsy or dizzy. Do not drive, use machinery, or do anything that needs mental alertness until you know how this medicine affects you. To reduce the risk of dizzy and fainting spells, do not stand or sit up quickly, especially if you are an older patient. Alcohol may increase dizziness and drowsiness. Avoid alcoholic drinks. Do not treat yourself for coughs, colds or allergies without asking your doctor or health care analyst for advice. Some ingredients can increase possible side effects. You have been given the following additional information: Headache, Tension Diazepam Oral tablet (Electronically signed by Barry Chase Dr. 10/09/2016 20:44)
--- NOTE | 2016-10-09 20:44 | ED MED RECONCILIATION SUMMARY ---
Patient: BENJAMIN CHRISTINE Medication Reconciliation Report [facility] VisitID: [id number] [place] [address] 61y, F Registration Date/Time: 10/08/2016 Weight: 72.1 kg Height/Length: 62 in. BMI: 29.1 ALLERGIES: STEROIDS, Sulfa Antibiotics The patient's Home Medications are listed below: CONTINUE TAKING THE FOLLOWING MEDICATIONS: Cyclobenzaprine HCl Oral Famciclovir Oral Sertraline HCl Oral Simvastatin Oral Spiriva HandiHaler Inhalation SUMAtriptan Succinate Oral The source(s) of the original Home Medication information: patient The following Medications were given to the patient in the Emergency Department: Diazepam [IVP] IVP 5 mg, administered: 10/08/2016 12:41:00 PM The following Medications were prescribed to the patient: Diazepam 5 mg tablets: take 1 tablet orally every 8 hours as needed for muscle spasm. Dispense fifteen (15). No refill. -- Barry Chase Dr.
== END 2016-10-08 15:03 | disposition home or self-care (01) ==
LOC: ED SRH 11:54
DX: G44.211 Episodic tension-type headache, intractable (principal); J44.9 Chronic obstructive pulmonary disease, unspecified; Z86.73 Personal history of transient ischemic attack (TIA), and cerebral infarction without residual deficits; Z79.899 Other long term (current) drug therapy; Z79.51 Long term (current) use of inhaled steroids; Z88.2 Allergy status to sulfonamides
CPT/HCPCS: 90004; 90100; 92760; 92761; 92762; 92763; 92764; 92765; 92766; 92767; 94001; 94060; 95059